=== PATIENT | male | born 1975 | race Caucasian/White ===

== ENCOUNTER 2018-11-13 23:40 | Inpatient (IN) | payer MEDICAID ==
[~2018-11-13] VITALS: Ht 182.9 cm; Wt 76.2 kg
[~2018-11-13 23:40] MED LIST: LEVO175T52 PO
[2018-11-14] MEDS ORDERED: vancomycin/NS 1 GM ADD-VANTAGE 250 ML IV ONE
[2018-11-14] MEDS ORDERED: CefTRIAXone 2gm/D5W 50ml 50 ML IV ONE
[2018-11-14] MEDS ORDERED: HYDROcodone/acetaminophen 10/325mg tab PO ONE (00:15)
[2018-11-14] MEDS ORDERED: TETanus/Pertussis (Acell)/Diphther VAC/PF (Tdap-Adult) 0.5ml syringe IM ONE (00:30)
[2018-11-14 00:31] LABS: MEAN PLATELET VOLUME 6.8 FL (7.4-10.4)
[2018-11-14 00:32] LABS: ALANINE AMINOTRANSFERASE 41 U/L (12-78); ALBUMIN 3.7 G/DL (3.4-5.0); ALBUMIN/GLOBULIN RATIO 1.1 (1.1-1.5); ALKALINE PHOSPHATASE 62 IU/L (46-116); ANION GAP 6 (8-16); ASPARTATE AMINO TRANSFERASE 32 U/L (10-37); BILIRUBIN,TOTAL 0.4 MG/DL (0.1-1.0); BLOOD UREA NITROGEN 32 MG/DL (7-18); BUN/CREATININE RATIO 34.8 (5.4-32.0); CALCIUM 8.8 MG/DL (8.5-10.1); CHLORIDE 105 MMOL/L (99-107); CREATININE 0.92 MG/DL (0.60-1.10); GLUCOSE 102 MG/DL (70-104); POTASSIUM 3.6 MMOL/L (3.5-5.1); SODIUM 139 MMOL/L (135-145); TOTAL CARBON DIOXIDE 27.6 MMOL/L (24-32); TOTAL PROTEIN 7.2 G/DL (6.4-8.2); eGFR 89 ML/MIN
[2018-11-14 00:34] LABS: BASOPHILS # (AUTO) 0.1 X10'3 (0-0.2); BASOPHILS % (AUTO) 0.6 % (0-1); EOSINOPHILS # (AUTO) 0.1 X10'3 (0-0.9); EOSINOPHILS % (AUTO) 0.9 % (0-6); HEMATOCRIT 32.6 % (42.0-52.0); LYMPHOCYTES # (AUTO) 1.9 X10'3 (1.1-4.8); LYMPHOCYTES % (AUTO) 20.3 % (21-51); MEAN CORPUSCULAR HEMOGLOBIN 32.5 PG (27.0-31.0); MEAN CORPUSCULAR HGB CONC 33.9 g/dL (33.0-36.5); MEAN CORPUSCULAR VOLUME 95.8 FL (78-98); MONOCYTES % (AUTO) 10.8 % (2-12); NEUTROPHILS # (AUTO) 6.2 X10'3 (1.8-7.7); NEUTROPHILS % (AUTO) 67.4 % (42-75); PLATELET COUNT 279 X10'3 (140-440); WHITE BLOOD COUNT 9.1 X10'3 (4.5-11.0)
[2018-11-14] MEDS ORDERED: iohexol 300mg/ml 100ml inj. ONE (01:11)
[2018-11-14] MEDS ORDERED: potassium cl 20mEq in 1/2 NS 1,000 ML IV SCH (01:54)
[2018-11-14] MEDS ORDERED: HYDROcodone/acetaminophen 5mg/325mg tablet PO PRN (01:55)
[2018-11-14] MEDS ORDERED: potassium Cl 40MEQ/NS 500ml 500 ML IV PRN (01:55)
[2018-11-14] MEDS ORDERED: potassium Cl 20 mEq SR tablet PO PRN ×2 (01:55)
[2018-11-14] MEDS ORDERED: potassium CL 10mEq/100ml bag 100 ML IV PRN (01:55)
[2018-11-14] MEDS ORDERED: magnesium 2GM in 50ml NS 50 ML IV PRN (01:55)
[2018-11-14] MEDS ORDERED: bisacodyl 10mg suppository rectal RC PRN (01:55)
[2018-11-14] MEDS ORDERED: magnesium hydroxide 30ml (MOM) UD suspension PO PRN (01:55)
[2018-11-14] MEDS ORDERED: ondansetron/PF 4mg/2ml inj IV PRN (01:55)
[2018-11-14] MEDS ORDERED: acetaminophen 325mg tablet PO PRN (01:55)
[2018-11-14] MEDS ORDERED: mag hydrox/Alum hydrox/simeth 30ml oral suspension PO PRN (01:55)
[2018-11-14] MEDS ORDERED: magnesium Cl slow-release 64mg tablet PO PRN (01:55)
[2018-11-14] MEDS ORDERED: morphine 2 MG/ML inj. syringe IV PRN (01:55)
[2018-11-14] MEDS ORDERED: magnesium 4gm in 100ml NS 100 ML IV PRN (01:55)
--- NOTE | 2018-11-14 03:03 | NUR ---
Patient in room [facility]TH[facility] 4022. I have received report from Mary GANN and had the opportunity to ask questions and assume patient care. Patient arrived on unit via wheelchair accompanied by transport at 0240. In no apparent distress.
[2018-11-14 03:05] VITALS: BP 127/76
--- NOTE | 2018-11-14 03:17 | NUR ---
Periodically uses meth. Addendum: 11/14/18 at 0318 by Ananda Betancourt RN Amended: Links added.
[2018-11-14 06:00] VITALS: BP 120/64
--- NOTE | 2018-11-14 06:10 | NUR ---
Problems reprioritized. Patient report given, questions answered & plan of care reviewed with Leanna GANN. Addendum: 11/14/18 at 06 by Ananda Betancourt RN Janice GANN
--- NOTE | 2018-11-14 06:30 | NUR ---
Patient in room [facility]TH[facility] 4022. I have received report from SANJUANITA Avalos and had the opportunity to ask questions and assume patient care.
[2018-11-14] MEDS: levoTHYROXINE 125mcg tablet PO SCH (07:36)
[2018-11-14] MEDS: levoTHYROXINE 100mcg tablet PO SCH (07:36)
[2018-11-14] MEDS: docusate sod 100mg capsule PO SCH ×2 (07:36→20:00)
[2018-11-14] MEDS: HYDROcodone/acetaminophen 10/325mg tab PO PRN ×4 (07:37→20:53)
[2018-11-14] MEDS: K and/or MAG REPLACEMENT MC SCH (08:00)
[2018-11-14] MEDS: vancomycin/NS 1 GM ADD-VANTAGE 250 ML IV SCH ×2 (09:00→16:22)
[2018-11-14 10:00] VITALS: BP 100/52
[2018-11-14] MEDS ORDERED: CefTRIAXone/D5W-Rocephin 1gm 50 ML IV SCH (12:00)
--- NOTE | 2018-11-14 17:59 | NUR ---
VS stable throughout the day. Left finger pain controlled with PO [place] given q4h. Splint placed to pts middle right finger after xray revealed it to be broken. Plan to continue IV abx per Dr. Carr. Pt updated on plan of care.
[2018-11-14 18:00] VITALS: BP 123/69
[2018-11-14] MEDS: lactobacillus rhamnosus 10,000 MMU CELLS/CAPSULE PO SCH (20:01)
[2018-11-14 22:00] VITALS: BP 123/69
[2018-11-15] MEDS: morphine 2 MG/ML inj. syringe IV PRN ×2 (00:22→21:12)
[2018-11-15] MEDS ORDERED: VANCOMYCIN LEVEL IV ONE (00:30)
--- NOTE | 2018-11-15 00:32 | NUR ---
patient stated that [place] was ineffective. Morphine administered. Educated patient that alternating [place] and Morphine is necessary. Offered another ice pack.
[2018-11-15] MEDS: vancomycin/NS 1 GM ADD-VANTAGE 250 ML IV SCH (00:48)
[2018-11-15] MEDS: HYDROcodone/acetaminophen 10/325mg tab PO PRN ×3 (05:37→17:14)
[2018-11-15 06:00] VITALS: BP 108/50
[2018-11-15 06:00] LABS: BASOPHILS # (AUTO) 0.1 X10'3 (0-0.2); BASOPHILS % (AUTO) 0.6 % (0-1); EOSINOPHILS # (AUTO) 0.1 X10'3 (0-0.9); EOSINOPHILS % (AUTO) 1.2 % (0-6); HEMATOCRIT 36.7 % (42.0-52.0); HEMOGLOBIN 12.4 g/dl (14.0-17.9); LYMPHOCYTES # (AUTO) 1.4 X10'3 (1.1-4.8); LYMPHOCYTES % (AUTO) 15.5 % (21-51); MEAN CORPUSCULAR HGB CONC 33.8 g/dL (33.0-36.5); MEAN CORPUSCULAR VOLUME 94.8 FL (78-98); MEAN PLATELET VOLUME 6.9 FL (7.4-10.4); MONOCYTES # (AUTO) 0.9 X10'3 (0-0.9); MONOCYTES % (AUTO) 9.4 % (2-12); NEUTROPHILS # (AUTO) 6.7 X10'3 (1.8-7.7); NEUTROPHILS % (AUTO) 73.3 % (42-75); PLATELET COUNT 299 X10'3 (140-440); RED BLOOD COUNT 3.88 X10'6 (4.70-6.10); WHITE BLOOD COUNT 9.2 X10'3 (4.5-11.0)
[2018-11-15 06:02] LABS: ALBUMIN 3.1 G/DL (3.4-5.0); ANION GAP 6 (8-16); BLOOD UREA NITROGEN 17 MG/DL (7-18); BUN/CREATININE RATIO 23.6 (5.4-32.0); CALCIUM 8.8 MG/DL (8.5-10.1); CHLORIDE 101 MMOL/L (99-107); CREATININE 0.72 MG/DL (0.60-1.10); GLUCOSE 95 MG/DL (70-104); MAGNESIUM 1.8 MG/DL (1.5-2.4); SODIUM 136 MMOL/L (135-145); eGFR > 90 ML/MIN
--- NOTE | 2018-11-15 06:25 | NUR ---
Problems reprioritized. Patient report given, questions answered & plan of care reviewed with SANJUANITA Barnes.
[2018-11-15] MEDS: levoTHYROXINE 100mcg tablet PO SCH (07:41)
[2018-11-15] MEDS: levoTHYROXINE 125mcg tablet PO SCH (07:41)
--- NOTE | 2018-11-15 07:43 | NUR ---
PT STATES HE ONLY TAKES SYNTROID 175MCG DAILY
[2018-11-15] MEDS: K and/or MAG REPLACEMENT MC SCH (08:00)
[2018-11-15] MEDS ORDERED: LIDOcaine 1% 30ml preserv. free vial IJ STA (08:11)
[2018-11-15] MEDS: docusate sod 100mg capsule PO SCH ×2 (09:41→20:00)
[2018-11-15] MEDS: lactobacillus rhamnosus 10,000 MMU CELLS/CAPSULE PO SCH ×2 (09:41→20:39)
[2018-11-15] MEDS: VANCOMYCIN 1,500MG inj. 1,500 MG in normal saline 250ml IV soln 280 ML IV SCH ×2 (09:41→17:14)
[2018-11-15 10:00] VITALS: BP 128/75
[2018-11-15 18:00] VITALS: BP 126/76
--- NOTE | 2018-11-15 18:47 | NUR ---
Problems reprioritized. Patient report given, questions answered & plan of care reviewed with LALITA GANN.
[2018-11-15 22:00] VITALS: BP 138/72
[2018-11-16] MEDS: VANCOMYCIN 1,500MG inj. 1,500 MG in normal saline 250ml IV soln 280 ML IV SCH ×3 (01:13→17:03)
[2018-11-16] MEDS: HYDROcodone/acetaminophen 10/325mg tab PO PRN ×3 (01:28→07:07)
[2018-11-16 06:10] VITALS: BP 126/71
[2018-11-16] MEDS: morphine 2 MG/ML inj. syringe IV PRN (06:39)
[2018-11-16] MEDS: levoTHYROXINE 125mcg tablet PO SCH (06:42)
[2018-11-16] MEDS: levoTHYROXINE 100mcg tablet PO SCH (06:42)
--- NOTE | 2018-11-16 06:49 | NUR ---
I have received patient report from Milagros GANN
[2018-11-16] MEDS ORDERED: HYDROcodone/acetaminophen 10/325mg tab PO PRN (07:05)
[2018-11-16 07:13] LABS: BASOPHILS % (AUTO) 0.4 % (0-1); EOSINOPHILS # (AUTO) 0.1 X10'3 (0-0.9); EOSINOPHILS % (AUTO) 0.7 % (0-6); HEMATOCRIT 37.2 % (42.0-52.0); HEMOGLOBIN 12.6 g/dl (14.0-17.9); LYMPHOCYTES # (AUTO) 1.8 X10'3 (1.1-4.8); LYMPHOCYTES % (AUTO) 16.6 % (21-51); MEAN CORPUSCULAR HEMOGLOBIN 32.2 PG (27.0-31.0); MEAN CORPUSCULAR HGB CONC 33.8 g/dL (33.0-36.5); MEAN CORPUSCULAR VOLUME 95.4 FL (78-98); MEAN PLATELET VOLUME 6.6 FL (7.4-10.4); MONOCYTES # (AUTO) 0.8 X10'3 (0-0.9); MONOCYTES % (AUTO) 7.3 % (2-12); PLATELET COUNT 340 X10'3 (140-440); RED CELL DISTRIBUTION WIDTH 13.8 % (11.5-14.5); WHITE BLOOD COUNT 10.7 X10'3 (4.5-11.0)
[2018-11-16 07:36] LABS: ALBUMIN 3.2 G/DL (3.4-5.0); ANION GAP 7 (8-16); BLOOD UREA NITROGEN 16 MG/DL (7-18); BUN/CREATININE RATIO 17.6 (5.4-32.0); CHLORIDE 100 MMOL/L (99-107); CREATININE 0.91 MG/DL (0.60-1.10); GLUCOSE 138 MG/DL (70-104); MAGNESIUM 2.1 MG/DL (1.5-2.4); POTASSIUM 3.9 MMOL/L (3.5-5.1); SODIUM 135 MMOL/L (135-145); TOTAL CARBON DIOXIDE 28.2 MMOL/L (24-32); eGFR 90 ML/MIN
[2018-11-16] MEDS: K and/or MAG REPLACEMENT MC SCH (08:00)
[2018-11-16] MEDS ORDERED: VANCOMYCIN LEVEL IV ONE (08:30)
[2018-11-16] MEDS ORDERED: morphine 2 MG/ML inj. syringe IV PRN (08:50)
[2018-11-16] MEDS ORDERED: HYDROmorphone 1 mg/ml syringe IV ONE (08:50)
[2018-11-16] MEDS: docusate sod 100mg capsule PO SCH ×2 (09:17→19:26)
[2018-11-16] MEDS: lactobacillus rhamnosus 10,000 MMU CELLS/CAPSULE PO SCH ×2 (09:17→19:26)
[2018-11-16 10:00] VITALS: BP 113/57
[2018-11-16 15:18] LABS: CLARITY,URINE CLEAR (Clear); COLOR,URINE YELLOW (Yellow); GLUCOSE, URINE NEGATIVE (Neg); KETONES,URINE NEGATIVE (Neg); LEUKOCYTE ESTERASE ,URINE NEGATIVE (Neg); NITRITES, URINE NEGATIVE (Neg); OCCULT BLOOD,URINE TRACE-INTACT (Neg); PH,URINE 6.5 (4.8-8.0); PROTEIN,URINE NEGATIVE (Neg); UROBILINOGEN,URINE 0.2 E.U/dL (0.2-1.0)
[2018-11-16 15:29] LABS: URINE AMPHETAMINE SCREEN POSITIVE (Neg); URINE BARBITUATE SCREEN NEGATIVE (Neg); URINE BENZODIAZEPINES SCREEN NEGATIVE (Neg); URINE CANNABINOID SCREEN NEGATIVE (Neg); URINE COCAINE SCREEN NEGATIVE (Neg); URINE METHADONE SCREEN NEGATIVE (Neg); URINE OPIATE SCREEN POSITIVE (Neg); URINE PHENCYCLIDINE SCREEN NEGATIVE (Neg)
[2018-11-16 15:31] LABS: UA COLLECTION TYPE CLN CATCH MIDSTREAM
[2018-11-16 15:33] LABS: BACTERIA,URINE 1+ /HPF (Neg); RBC,URINE 0-2 /HPF (0-2); SQUAMOUS EPITHELIAL CELL,UR FEW /LPF (FEW); WBC,URINE 0-4 /HPF (0-4)
[2018-11-16 17:00] VITALS: BP 115/69
--- NOTE | 2018-11-16 18:31 | NUR ---
Patient report given to Camilla GANN
--- NOTE | 2018-11-16 18:35 | NUR ---
Patient in room [facility]TH[facility] 4022. I have received report from Shannen GANN and had the opportunity to ask questions and assume patient care.
--- NOTE | 2018-11-16 19:30 | NUR ---
Went into pt's room to give scheduled meds. He told me his pain level was currently "maybe a 1", but he was feeling a slight pressure in his hand so he was worried that it would mean the feeling in his hand would return and the pain would increase. Pt requested pain meds in fear that his pain would increase to what it was in the morning during the procedure with Dr. Carr. I said that because his pain is at a 1, to please use the call light if the pain increases and I could bring him pain meds if his pain increased. The patient understood and said that he would.
--- NOTE | 2018-11-16 20:15 | NUR ---
I went into talk to patient regarding his dissatisfaction regarding pre medication of pain medicine for procedure he had this morning with Dr. Carr. Pt's nurse, Camilla asked that I talk to him regarding the pain medicine issue; he was not in pain right now but fearful about the pain getting out of control like it had done earlier today. I had conversation with Goran regarding the timing of pain medicine pre procedure at bedside; and it appears that he received morphine about 15-20 minutes of procedure starting. I am not sure of exact timing of the procedure, and he also got a local lidocaine injection from Dr. Carr for pain management. Patient very concerned about having his pain managed and also expressed some other concerns regarding his stay so far. So far his pain is a 1/10 on the pain scale; I told him he can have pain medicine if the pain number is 4-6/10 or 7-10/10 and we will continue to monitor for that. If he moves the finger and pain goes up we will give the appropriate pain medicine. I offered to have Antonino the director of the floor talk to him tomorrow regarding these issues but he wants to talk to someone nav. I talked to [employer] Nursing supervisor lamp shades about the situation and he will come talk to the patient when he is available.
[2018-11-16 22:00] VITALS: BP 136/84
[2018-11-17] MEDS: VANCOMYCIN 1,500MG inj. 1,500 MG in normal saline 250ml IV soln 280 ML IV SCH ×2 (01:37→08:21)
--- NOTE | 2018-11-17 03:49 | NUR ---
Meghan the patient career resource specialist on [facility] saw patient touching the iv machine and hitting some buttons while he was up in the room leaving the bathroom. I asked the patient what he was doing to the iv machine; he verbalized " I just hit the ok button " I informed him that only nursing staff is to touch any of the buttons on the iv machine. I disconnected the iv tubing from the iv since the antibiotic was finished. I informed the pt's nurse of the situation so she can continue to monitor.
[2018-11-17 06:10] VITALS: BP 122/57
[2018-11-17 06:18] LABS: BASOPHILS % (AUTO) 0.7 % (0-1); EOSINOPHILS # (AUTO) 0.1 X10'3 (0-0.9); EOSINOPHILS % (AUTO) 1.9 % (0-6); HEMATOCRIT 37.9 % (42.0-52.0); HEMOGLOBIN 12.7 g/dl (14.0-17.9); LYMPHOCYTES # (AUTO) 1.6 X10'3 (1.1-4.8); MEAN CORPUSCULAR HEMOGLOBIN 32.3 PG (27.0-31.0); MEAN CORPUSCULAR HGB CONC 33.5 g/dL (33.0-36.5); MEAN CORPUSCULAR VOLUME 96.4 FL (78-98); MEAN PLATELET VOLUME 6.6 FL (7.4-10.4); MONOCYTES # (AUTO) 0.5 X10'3 (0-0.9); MONOCYTES % (AUTO) 7.4 % (2-12); NEUTROPHILS # (AUTO) 4.8 X10'3 (1.8-7.7); PLATELET COUNT 338 X10'3 (140-440); RED BLOOD COUNT 3.93 X10'6 (4.70-6.10); RED CELL DISTRIBUTION WIDTH 13.5 % (11.5-14.5); WHITE BLOOD COUNT 7.1 X10'3 (4.5-11.0)
--- NOTE | 2018-11-17 06:22 | NUR ---
Problems reprioritized. Patient report given to Shannen GANN and Noelle GANN, questions answered & plan of care reviewed.
[2018-11-17 06:32] LABS: ALBUMIN 3.2 G/DL (3.4-5.0); ANION GAP 4 (8-16); BLOOD UREA NITROGEN 15 MG/DL (7-18); BUN/CREATININE RATIO 20.3 (5.4-32.0); CALCIUM 9.5 MG/DL (8.5-10.1); CHLORIDE 101 MMOL/L (99-107); CREATININE 0.74 MG/DL (0.60-1.10); GLUCOSE 84 MG/DL (70-104); POTASSIUM 4.3 MMOL/L (3.5-5.1); SODIUM 135 MMOL/L (135-145); TOTAL CARBON DIOXIDE 29.9 MMOL/L (24-32); eGFR > 90 ML/MIN
--- NOTE | 2018-11-17 06:35 | NUR ---
I have received patient report from Camilla GANN
--- NOTE | 2018-11-17 06:52 | NUR ---
Patient in room [facility]TH[facility] 4022. I have received report from Camilla GANN and had the opportunity to ask questions and assume patient care.
[2018-11-17] MEDS: K and/or MAG REPLACEMENT MC SCH (08:00)
[2018-11-17] MEDS: levoTHYROXINE 125mcg tablet PO SCH (08:21)
[2018-11-17] MEDS: docusate sod 100mg capsule PO SCH (08:22)
[2018-11-17] MEDS: lactobacillus rhamnosus 10,000 MMU CELLS/CAPSULE PO SCH (08:22)
[2018-11-17] MEDS: levoTHYROXINE 100mcg tablet PO SCH (08:22)
[2018-11-17 10:00] VITALS: BP 118/76
[2018-11-17] MEDS ORDERED: CLIN-5 PO (13:20)
[2018-11-17] MEDS ORDERED: HYDR-4383 PO (13:20)
--- NOTE | 2018-11-17 14:00 | NUR ---
Patient was discharged at this time. Patient did not wish to wait for pending wound culture results, so Dr. Byers discharged him on medications. Patient said he needed to find his boss and couldn't call him. Patient educated to keep wound dry and follow up with Dr. kwok. Addendum: 11/17/18 at 1442 by Gwen Zuluaga RN Not to follow up with Dr. Kwok, Dr Kwok said to follow up with PCP.
--- NOTE | 2018-11-17 15:24 | NUR ---
Student documentation: I have reviewed and agree with all interventions, assessments performed and documented by Noelle GANN.
== END 2018-11-17 14:00 | disposition home or self-care (01) | DRG 316 ==
LOC: ER 23:40 → ORTHO 4S 11-14 02:13 → CMPBEDREQ 11-14 02:15
PROVIDERS: ADMIT Internal Medicine; ATTEND Internal Medicine
PROC: BP2U1ZZ Computerized Tomography (CT Scan) of Left Upper Extremity using Low Osmolar Contrast (ICD-10-PCS; 2018-11-14)
PROC: 3E0234Z Introduction of Serum, Toxoid and Vaccine into Muscle, Percutaneous Approach (ICD-10-PCS; 2018-11-14)
PROC: 0LB80ZZ Excision of Left Hand Tendon, Open Approach (ICD-10-PCS; principal; 2018-11-16)
DX: M65.842 Other synovitis and tenosynovitis, left hand (principal); E03.9 Hypothyroidism, unspecified; L03.012 Cellulitis of left finger; X58.XXXA Exposure to other specified factors, initial encounter; L03.113 Cellulitis of right upper limb; L02.512 Cutaneous abscess of left hand; Z79.82 Long term (current) use of aspirin; S62.662A Nondisplaced fracture of distal phalanx of right middle finger, initial encounter for closed fracture; Z79.890 Hormone replacement therapy; Z88.0 Allergy status to penicillin; Y93.89 Activity, other specified; Y92.89 Other specified places as the place of occurrence of the external cause; Y99.8 Other external cause status; Z23 Encounter for immunization
CPT/HCPCS: 36415; 70480; 73130; 73140; 73201; 80048; 80053; 80202; 80305; 81001; 83735; 84443; 85025; 85651; 87040; 87070; 87077; 87186; 90471; 90715; 96365; 96367; 99285; G0378; J0696; J1170; J2270; J3370; J3490; J7030; Q9967

== ENCOUNTER 2019-07-10 08:25 | Emergency (ER) | payer MEDICAID ==
[~2019-07-10] VITALS: Ht 182.9 cm; Wt 76.0 kg
[~2019-07-10 08:25] MED LIST changes: +CLIN-5 PO; +HYDR-4383 PO
[2019-07-10 08:36] VITALS: BP 133/62
== END 2019-07-10 10:44 | disposition left against medical advice (07) ==
LOC: ER 08:26
DX: R11.2 Nausea with vomiting, unspecified (principal); Z53.21 Procedure and treatment not carried out due to patient leaving prior to being seen by health care provider

== ENCOUNTER 2019-08-25 04:18 | Emergency (ER) | payer OTHER, MEDICAID ==
[~2019-08-25] VITALS: Ht 182.9 cm; Wt 78.7 kg
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
[2019-08-25] MEDS ORDERED: ibuprofen tablet 400 MG TABLET PO ONE (05:20)
--- NOTE | 2019-08-25 05:27 | NUR ---
retuned from [facility]
[2019-08-25 05:58] VITALS: BP 118/67
[2019-08-26] MEDS ORDERED: CYCL-1 PO (17:16)
== END 2019-08-25 06:00 | disposition home or self-care (01) ==
LOC: ER 04:19
DX: S16.1XXA Strain of muscle, fascia and tendon at neck level, initial encounter (principal); R51 Headache; Z88.0 Allergy status to penicillin; Z79.899 Other long term (current) drug therapy; V99.XXXA Unspecified transport accident, initial encounter; Y93.89 Activity, other specified; Y92.410 Unspecified street and highway as the place of occurrence of the external cause; Y99.8 Other external cause status
CPT/HCPCS: 72040; 99283

== ENCOUNTER 2019-08-26 16:09 | Emergency (ER) | payer MEDICAID, OTHER ==
[~2019-08-26] VITALS: Ht 182.9 cm; Wt 77.7 kg
[~2019-08-26 16:09] MED LIST changes: -CLIN-5 PO; -HYDR-4383 PO
[2019-08-26 16:10] VITALS: BP 119/79
[2019-08-26] MEDS ORDERED: CYCL-1 PO (17:16)
== END 2019-08-26 17:51 | disposition home or self-care (01) ==
LOC: ER 16:10
DX: S13.4XXA Sprain of ligaments of cervical spine, initial encounter (principal); Z88.0 Allergy status to penicillin; Z79.899 Other long term (current) drug therapy; V89.2XXA Person injured in unspecified motor-vehicle accident, traffic, initial encounter; Y93.89 Activity, other specified; Y92.89 Other specified places as the place of occurrence of the external cause; Y99.8 Other external cause status
CPT/HCPCS: 99283

== ENCOUNTER 2021-04-02 12:06 | Emergency (ER) | payer MEDICAID ==
[~2021-04-02] VITALS: Ht 182.9 cm; Wt 79.5 kg
[~2021-04-02 12:06] MED LIST changes: +CYCL-1 PO
[2021-04-02 13:02] VITALS: BP 117/77
[2021-04-02] MEDS ORDERED: LIDOcaine 1% W/epiNEPHrine 1:200,000 10ml vial IJ ONE (15:30)
[2021-04-02] MEDS ORDERED: DOXY100C43 PO (15:30)
[2021-04-02] MEDS ORDERED: LIDOcaine 1% w/epiNEPHrine 1:200,000 30ml vial IJ ONE (15:40)
== END 2021-04-02 15:59 | disposition home or self-care (01) ==
LOC: ER 12:07
DX: L02.415 Cutaneous abscess of right lower limb (principal); L03.115 Cellulitis of right lower limb; M79.661 Pain in right lower leg; E03.9 Hypothyroidism, unspecified; Z88.0 Allergy status to penicillin; Z79.2 Long term (current) use of antibiotics; Z79.899 Other long term (current) drug therapy
CPT/HCPCS: 10060; 99283

== ENCOUNTER 2024-08-24 18:32 | Emergency (ER) | payer MEDICAID ==
[~2024-08-24] VITALS: Ht 182.9 cm; Wt 64.1 kg
[2024-08-24 18:42] VITALS: BP 130/86; PULSE 74; RESP 15; O2SAT 99
[2024-08-24] MEDS ORDERED: LEVO175C2 PO (19:06)
== END 2024-08-24 19:07 | disposition home or self-care (01) ==
LOC: ER 18:33
DX: E03.9 Hypothyroidism, unspecified (principal); Z76.0 Encounter for issue of repeat prescription; Z88.0 Allergy status to penicillin; Z79.899 Other long term (current) drug therapy
CPT/HCPCS: 99281